=== PATIENT | female | born 1925 | race Caucasian/White ===

== ENCOUNTER 2016-05-14 10:18 | Outpatient (CLI) | payer MEDICARE ==
--- NOTE | 2016-05-14 11:45 | RAD ---
PA AND LATERAL CHEST: History: Acute bronchitis. FINDINGS: Comparison is made with portable exam of 6--12. The heart is enlarged. There is mild prominence of pulmonary vascularity. No lobar consolidation, pn eumothorax, or pleural effusions are seen. POS: [facility]
== END 2016-05-14 10:19 | disposition home or self-care (01) ==
LOC: MADLABBHPM 10:18
PROVIDERS: ATTEND Family Medicine
DX: J20.9 Acute bronchitis, unspecified (principal)
CPT/HCPCS: 71020

== ENCOUNTER 2016-05-14 12:12 | Emergency (ER) | payer MEDICARE ==
[~2016-05-14 12:12] MED LIST: Sodium Chloride 0.9% 100 ML BAG ONE; cefTRIAXone\\ROCEPHIN 1 GM VIAL ONE
[2016-05-14] MEDS ORDERED: Dexamethasone 4 MG TAB ONE (14:03)
[2016-05-14 14:28] LABS: ALT (SGPT) 14 U/L (0-55); AST (SGOT) 19 U/L (5-34); Albumin 4.1 g/dL (3.4-4.8); Alkaline Phosphatase 64 U/L (40-150); Anion Gap 13 mmol/L (10-20); BUN (Urea Nitrogen) 10 mg/dL (9.8-20.1); Bilirubin, Total 1.1 mg/dL (0.2-1.2); Calc. Creatinine Clearance 0 mL/min (70-130); Carbon Dioxide 26 mmol/L (23-31); Chloride 102 mmol/L (98-107); Estimated GFR-MDRD 83; Globulin 2.7 g/dL (2.4-3.5); Glucose 125 mg/dL (83-110); Potassium 4.2 mmol/L (3.5-5.1); Protein, Total 6.8 g/dL (5.8-8.1); Sodium 137 mmol/L (136-145)
[2016-05-14 14:34] LABS: #Lymphocytes 0.5 thou/uL (1.20-3.40); #Monocytes 0.3 thou/uL (0.11-0.59); #Neutrophils 3.9 thou/uL (1.40-6.50); %Basophils 0.7 % (0.0-1.0); %Eosinophils 0.8 % (0.0-10.0); %Lymphocytes 9.7 % (21.0-51.0); %Monocytes 5.5 % (0.0-10.0); %Neutrophils 83.2 % (42.0-75.0); Hemoglobin 12.7 g/dL (12.0-16.0); Mean Corpuscular HGB CONC 32.9 g/dL (32.0-36.0); Mean Corpuscular Hemoglobin 31.4 pg (27.0-31.0); Mean Corpuscular Volume 95.5 fl (81.0-99.0); Mean Platelet Volume 9.1 fL (7.4-10.4); PLT Morphology Comment Appears Decreased; Platelet Count 118 thou/uL (130-400); RBC Distribution Width 13.1 % (11.5-14.5); Red Blood Cell (RBC) Count 4.05 mill/uL (4.20-5.40); White Blood Cell (WBC) Count 4.6 thou/uL (4.8-10.8)
[2016-05-14] MEDS ORDERED: Azithromycin 500 MG VIAL ONE (15:06)
[2016-05-14] MEDS ORDERED: Furosemide 20 MG/2 ML VIAL ONE (15:50)
== END 2016-05-14 17:10 | disposition short-term general hospital (02) ==
LOC: MADERS 12:12
DX: J40 Bronchitis, not specified as acute or chronic (principal); E87.70 Fluid overload, unspecified; R09.02 Hypoxemia; I10 Essential (primary) hypertension; I48.91 Unspecified atrial fibrillation; E78.5 Hyperlipidemia, unspecified; Z79.899 Other long term (current) drug therapy
CPT/HCPCS: 36415; 71020; 80053; 83880; 85025; 94760; 96365; 96375; J0456; J0696; J1940; J7050; J7620; J8540